=== PATIENT | male | born 1955 | race Caucasian/White ===

== ENCOUNTER 2020-01-19 05:51 | Day surgery (SDC) | payer OTHER ==
[~2020-01-19] VITALS: Ht 175.3 cm; Wt 78.6 kg
[~2020-01-19 05:51] MED LIST: AMLO-150 PO; APIX5TAB PO; CHOL200074 PO; IRBE300T8 PO; METF500T17 PO; NEBI10TA3 PO; SOUR1000 PO
[2020-01-19 06:25] VITALS: BP 142/96
[2020-01-19] MEDS ORDERED: IRBE300T8 PO (06:31)
[2020-01-19 06:45] LABS: ANION GAP 7 mmol/L (5-15); CALCIUM 9.7 mg/dL (8.5-10.1); CHLORIDE 113 mmol/L (98-107); CREATININE 1.33 mg/dL (0.7-1.3)
[2020-01-19] MEDS ORDERED: PROPOFOL 10 MG/ML, 20ML ONE (07:26)
== END 2020-01-19 08:20 | disposition home or self-care (01) ==
LOC: CACL 05:51
PROVIDERS: ATTEND Internal Medicine Cardiovascular Disease
DX: I48.91 Unspecified atrial fibrillation (principal); I10 Essential (primary) hypertension; Z79.899 Other long term (current) drug therapy; Z79.01 Long term (current) use of anticoagulants; Z98.890 Other specified postprocedural states
CPT/HCPCS: 36415; 80048; 92960; J2704

== ENCOUNTER → 2020-03-25 | Outpatient (CLI) | payer OTHER ==
[~2020-03-25] MED LIST changes: +OMNIPAQUE 350 MG/ML, 150 ML BOTTLE ONE
== END | disposition home or self-care (01) ==
LOC: CFH 13:56
PROVIDERS: ATTEND Internal Medicine Cardiovascular Disease
DX: U07.1 COVID-19 (principal); I48.91 Unspecified atrial fibrillation
CPT/HCPCS: 71046; 75572; 87635; Q9967

== ENCOUNTER 2020-05-27 09:49 | Outpatient (CLI) | payer OTHER ==
[~2020-05-27 09:49] MED LIST changes: -OMNIPAQUE 350 MG/ML, 150 ML BOTTLE ONE
== END 2020-05-27 23:59 | disposition home or self-care (01) ==
LOC: STAR 09:49
PROVIDERS: ATTEND Anesthesiology
DX: Z20.822 Contact with and (suspected) exposure to COVID-19 (principal)
CPT/HCPCS: U0003

== ENCOUNTER 2020-06-21 13:30 | Outpatient (CLI) | payer OTHER | END 2020-06-21 23:59 | disposition home or self-care (01) | LOC: COVVAC 13:30 | PROVIDERS: ATTEND Anesthesiology | DX: Z20.822 Contact with and (suspected) exposure to COVID-19 (principal) | CPT/HCPCS: U0003 ==